=== PATIENT | female | born 1945 | race Caucasian/White ===

== ENCOUNTER → 2020-07-10 10:24 | Outpatient (CLI) | payer OTHER, SELFPAY ==
--- NOTE | ~2020-07-10 | MM_ITS ---
EXAMINATION: MM screening ana paula BI w jenny HISTORY: Screening TECHNIQUE: Craniocaudal and mediolateral oblique 3-D tomosynthesis images were obtained and synthetic 2-D images were generated. CAD analysis was submitted and interpreted. COMPARISON: Comparison to multiple prior studies sequentially, with oldest reviewed study dated 09/26. BREAST PARENCHYMAL COMPOSITION: There are scattered areas of fibroglandular density. FINDINGS: There is no evidence of suspicious mass, calcification, or architectural distortion to sugg est malignancy in either breast. There has been no suspicious interval change. IMPRESSION: 1. No mammographic evidence of malignancy. 2. Recommend routine screening mammography in one year. BI-RADS Category 1: Negative Reviewed, dictated and finalized at location A.
== END ==
PROVIDERS: PCP Internal Medicine; Visit Provider Nurse Practitioner
DX: Z12.31 Encounter for screening mammogram for malignant neoplasm of breast (principal)
CPT/HCPCS: 77063; 77067

== ENCOUNTER 2020-09-27 08:46 | Outpatient (CLI) | payer OTHER, SELFPAY ==
--- NOTE | ~2020-09-27 | DEXA_ITS ---
Bone Density Report Name: Belinda Ibarra Age: 74 Sex: Female Ethnicity: White Date of : 1945 Indication: osteopenia; parental hip fracture; height loss; prior fracture; postmenopausal Referring Provider: Denise Richards Study: Bone densitometry was performed. Exam Date: September 27, 2020 Accession number: [id number] Bone Density: Region BMD T-score Z-score Classification AP Spine (L1, L4) 0.919 -1.1 1.3 Osteopenia Femoral Neck (Left) 0.558 -2.6 -0.6 Osteoporosis Total Hip (Left) 0.746 -1.6 0.1 Osteopenia Total Hip Bilateral Avg 0.727 -1.8 -0.1 Osteopenia Femoral Neck (Right) 0.520 -3.0 -0.9 Osteoporosis Total Hip (Right) 0.707 -1.9 -0.2 Osteopenia World Health Organization criteria for BMD impression classify patients as: Normal (T-score at or above -1.0), Osteopenia (T-score between -1.0 and -2.5), or Osteoporosis (T-score at or below -2.5). 10-year Fracture Risk: FRAX not reported because: Some T-score for Spine Total or Hip Total or Femoral Neck at or below -2.5 Previous Exams: Region Exam Age BMD T-score BMD Change BMD Change Date g/cm2 vs Baseline vs Previous AP Spine(L1, L4) 09/27/2020 74 0.919 -1.1 -0.026(-2.7%)# -0.023(-2.4%) 09/15/2018 72 0.942 -0.9 -0.003(-0.3%)# 0.026(2.9%)* 07/15/2016 70 0.916 -1.1 -0.029(-3.1%)# -0.113(-11.0%) 12/22/2013 68 1.028 -0.1 0.083(8.8%)# -0.051(-4.7%)# 12/03/2010 65 1.079 0.4 0.134(14.2%)* 0.095(9.7%)* 08/26/2007 61 0.984 -0.5 0.039(4.1%)* 0.039(4.1%)* 02/06/2005 59 0.945 -0.8 Total Hip(Left) 09/27/2020 74 0.746 -1.6 -0.028(-3.6%)# 0.001(0.1%) 09/15/2018 72 0.746 -1.6 -0.029(-3.7%)# -0.017(-2.2%) 07/15/2016 70 0.763 -1.5 -0.012(-1.5%)# -0.037(-4.6%)* 12/22/2013 68 0.799 -1.2 0.025(3.2%)# 0.041(5.5%)# 12/03/2010 65 0.758 -1.5 -0.017(-2.1%) 0.004(0.5%) 08/26/2007 61 0.754 -1.5 -0.020(-2.6%) -0.020(-2.6%) 02/06/2005 59 0.774 -1.4 Total Hip(Right) 09/27/2020 74 0.707 -1.9 -0.060(-7.9%)# -0.022(-3.1%) 09/15/2018 72 0.729 -1.7 -0.038(-4.9%)# 0.010(1.3%) 07/15/2016 70 0.719 -1.8 -0.048(-6.2%)# -0.051(-6.6%)* 12/22/2013 68 0.770 -1.4 0.003(0.4%)# 0.020(2.7%)# 12/03/2010 65 0.750 -1.6 -0.017(-2.2%) 0.000(0.0%) 08/26/2007 61 0.751 -1.6 -0.016(-2.1%) -0.016(-2.1%) 02/06/2005 59 0.767 -1.4 *Denotes significance at 95% confidence level, LSC for AP Spine = 0.022 g/cm2, LSC for Total Hip = 0.027 g/cm2 Clinical Information Provided by Patient:
== END 2020-09-27 08:47 | disposition home or self-care (01) ==
PROVIDERS: PCP Internal Medicine; Visit Provider Nurse Practitioner
DX: M81.0 Age-related osteoporosis without current pathological fracture (principal); M85.89 Other specified disorders of bone density and structure, multiple sites
CPT/HCPCS: 77080

== ENCOUNTER → 2022-03-03 10:40 | Outpatient (CLI) | payer OTHER, SELFPAY ==
--- NOTE | ~2022-03-03 | MM_ITS ---
EXAMINATION: MM screening ana paula BI w jenny HISTORY: Screening mammogram TECHNIQUE: Craniocaudal and mediolateral oblique 3-D tomosynthesis images were obtained and synthetic 2-D images were generated. Bilateral rotated lateral CC views. CAD analysis was submitted and interp reted. COMPARISON: 07/10/2020, 12/16/2018, 12/01/2017 bilateral screening mammogram examinations BREAST PARENCHYMAL COMPOSITION: The breasts are heterogeneously dense, which may obscure small masses . FINDINGS: There is no evidence of suspicious mass, calcification, or architectural distortion to sugg est malignancy in either breast. There has been no suspicious interval change. IMPRESSION: 1. No mammographic evidence of malignancy. 2. Recommend routine screening mammography in one year. BI-RADS Category 1: Negative Reviewed, dictated and finalized at location A. MAN
== END ==
PROVIDERS: PCP Internal Medicine; Visit Provider Obstetrics & Gynecology Gynecology
DX: Z12.31 Encounter for screening mammogram for malignant neoplasm of breast (principal)
CPT/HCPCS: 77063; 77067

== ENCOUNTER 2022-11-29 09:32 | Outpatient (CLI) | payer OTHER, SELFPAY ==
--- NOTE | ~2022-11-29 | DEXA_ITS ---
Bone Density Report Name: WALESKA CARDOZO Age: 77 Sex: Female Ethnicity: White Date of : 1945 Indication: osteopenia; height loss; prior fracture; postmenopausal Referring Provider: CARON LOMAX Study: Bone densitometry was performed. Exam Date: November 29, 2022 Accession number: [id number] Bone Density: Region BMD T-score Z-score Classification AP Spine(L1, L2, L4) 0.990 -0.4 2.0 Normal Femoral Neck (Left) 0.532 -2.9 -0.7 Osteoporosis Total Hip (Left) 0.751 -1.6 0.3 Osteopenia Femoral Neck (Right) 0.541 -2.8 -0.6 Osteoporosis Total Hip (Right) 0.732 -1.7 0.1 Osteopenia Total Hip Mean 0.742 -1.7 0.2 Osteopenia World Health Organization criteria for BMD impression classify patients as: Normal (T-score at or above -1.0), Osteopenia (T-score between -1.0 and -2.5), or Osteoporosis (T-score at or below -2.5). 10-year Fracture Risk: FRAX not reported because: Some T-score for Spine Total or Hip Total or Femoral Neck at or below -2.5 Previous Exams: Region Exam Age BMD T-score BMD Change BMD Change Date g/cm2 vs Baseline vs Previous AP Spine (L1-L2,L4) 11/29/2022 77 0.990 -0.4 -0.055 (-5.2%) 0.038 (4.0%)* 07/15/2016 70 0.952 -0.7 -0.093 (-8.9%) -0.093 (-8.9%) 12/22/2013 68 1.045 0.1 Total Hip(Left) 11/29/2022 77 0.751 -1.6 -0.049 (-6.1%) 0.005 (0.6%) 09/27/2020 74 0.746 -1.6 -0.053 (-6.6%) 0.001 (0.1%) 09/15/2018 72 0.746 -1.6 -0.054 (-6.7%) -0.017 (-2.2%) 07/15/2016 70 0.763 -1.5 -0.037 (-4.6%) -0.037 (-4.6%) 12/22/2013 68 0.799 -1.2 Total Hip(Right) 11/29/2022 77 0.732 -1.7 -0.038 (-5.0%) 0.026 (3.6%) 09/27/2020 74 0.707 -1.9 -0.064 (-8.3%) -0.022 (-3.1%) 09/15/2018 72 0.729 -1.7 -0.041 (-5.4%) 0.010 (1.3%) 07/15/2016 70 0.719 -1.8 -0.051 (-6.6%) -0.051 (-6.6%) 12/22/2013 68 0.770 -1.4 *Denotes significance at 95% confidence level, LSC for AP Spine = 0.022 g/cm2, LSC for Total Hip = 0.027 g/cm2 Clinical Information Provided by Patient: Has had a low trauma fracture Has used the following medications: Vitamin D, Calcium Patient maximum height was 65 Menopause Age: 51 Drinks caffeinated beverages Onset of menses at age 13 Number of children 2 Impression: The patient has established osteoporosis, based on the Left Femoral Neck T-score and the existence of a prior fracture. The patient has risk factors, including: previous fracture. No signifi
== END 2022-11-29 09:33 | disposition home or self-care (01) ==
LOC: ANHIMG 09:34
PROVIDERS: PCP Nurse Practitioner Family; Visit Provider Nurse Practitioner Family
DX: M81.0 Age-related osteoporosis without current pathological fracture (principal); M85.852 Other specified disorders of bone density and structure, left thigh; M85.851 Other specified disorders of bone density and structure, right thigh
CPT/HCPCS: 77080

== ENCOUNTER → 2023-05-04 12:17 | Outpatient (CLI) | payer OTHER, SELFPAY ==
--- NOTE | ~2023-05-04 | MM_ITS ---
EXAMINATION: MM screening ana paula BI w jenny HISTORY: Screening TECHNIQUE: Craniocaudal and mediolateral oblique 3-D tomosynthesis images were obtained and synthetic 2-D images were generated. CAD analysis was submitted and interpreted. COMPARISON: Comparison to multiple prior studies sequentially, with oldest reviewed study dated 04/2016. BREAST PARENCHYMAL COMPOSITION: Not dense: There are scattered areas of fibroglandular density. FINDINGS: There is no evidence of suspicious mass, calcification, or architectural distortion to sugg est malignancy in either breast. There has been no suspicious interval change. IMPRESSION: 1. No mammographic evidence of malignancy. 2. Recommend routine screening mammography in one year. BI-RADS Category 1: Negative Reviewed, dictated and finalized at location A. L MANAGER
== END ==
PROVIDERS: PCP Nurse Practitioner; Visit Provider Nurse Practitioner
DX: Z12.31 Encounter for screening mammogram for malignant neoplasm of breast (principal)
CPT/HCPCS: 77063; 77067

== ENCOUNTER 2023-09-08 09:58 | Emergency (ER) | payer OTHER, SELFPAY ==
[2023-09-08 10:15] VITALS: BP 134/61; PULSE 105; RESP 14; TEMP 37.1; O2SAT 99
[2023-09-08 10:36] LABS: EDUAAPPEAR Cloudy; EDUABILI 1+; EDUABLOOD 3+; EDUACOLOR1 Yellow; EDUAGLUCOSE Negative; EDUAKETONE Negative; EDUALEUKO 3+; EDUANITRATE Negative; EDUAPH 5.5; EDUAPROTEIN 3+; EDUAUROBILI 0.2
--- NOTE | 2023-09-08 10:40 | ED.FEMALEGU ---
HPI - Female Genitourinary General Chief complaint: Urogenital-Female Stated complaint: urinary issue Time Seen by Provider: 09/08/23 10:40 Source: patient Mode of arrival: ambulatory Limitations: no limitations History of Present Illness HPI Narrative: 77-year-old female presents with complaint of urinary urgency, frequency, pressure to suprapubic area for 3 days. Afebrile. Denies dysuria. All systems reviewed and negative except as noted above. Related Data Home Medications Medication Instructions Recorded Confirmed calcium carbonate 600 mg PO BID 10/01/20 08/08/23 cholecalciferol (vitamin D3) 25 12.5 mcg PO BID 01/12/23 08/08/23 mcg (1,000 unit) chewable tablet latanoprost 0.005 % eye drops drp LEFT EYE 08/08/23 08/08/23 Allergies Allergy/AdvReac Type Severity Reaction Status Date / Time ibuprofen Allergy Severe THROAT Verified 09/08/23 10:22 SWELLING alendronate sodium Allergy Intermediate CCRAMPING Verified 09/08/23 10:22 AND DIARRHEA fluconazole Allergy Intermediate RASH Verified 09/08/23 10:22 amoxicillin Allergy Unknown Diarrhea Verified 09/08/23 10:22 bee stings Allergy Intermediate SWELLING Uncoded 09/08/23 10:22 OF FACE CAPIX SHAMPOO Allergy Intermediate ITCHING Uncoded 09/08/23 10:22 AND BURNING Review of Systems Review of Systems: CONSTITUTIONAL: Denies fever, chills, or sweats. EYES: Denies visual changes, redness, or discharge. ENT: Denies rhinorrhea, congestion, sore throat, or otalgia. CARDIOVASCULAR: Denies chest pain, palpitations, or edema. RESPIRATORY: Denies cough or dyspnea. GASTROINTESTINAL: Denies abdominal pain, nausea, vomiting, or diarrhea. GENITOURINARY: Denies dysuria or hematuria. Reports urinary frequency, urgency, Suprapubic pressure. SKIN: Denies rash or itching. MUSCULOSKELETAL: Denies back pain, joint pain, or myalgia. NEUROLOGIC: Denies headache, numbness, or weakness. PSYCHIATRIC: Denies anxiety or depression. All other systems reviewed are negative, except as documented in HPI. 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, left eye Cough Fasting hyperglycemia Hemoptysis Hyperlipidemia, unspecified Overweight Shortness of breath Unspecified asthma, uncomplicated Family History Family History Mother Family history of Alzheimer's disease Father Family history of lung cancer Patient's father is Sibling Family history of hyperthyroidism Other Hypertension Social History Social History Smoking status: Never smoker Alcohol intake: never Lack of Transportation: No Lack of Food: Never True Current Housing: I Have Housing Concerned About Future Housing: No Difficulty Paying Gas/Electric Bills: No Difficulty Paying for Meds: No Currently Unemployed: No Education: High School Diploma/GED Difficulty w/ Childcare or Family Care: No Comments At time of signature, agree with nursing past medical, surgical, social and family history. There is no relevant family history pertinent to the presenting complaint. Exam Narrative: GENERAL: This is a well-nourished, well-developed patient, in no apparent distress. HEAD: normocephalic, atraumatic. EYES: PERRL. Sclera clear/white. Vision is grossly intact. EARS: External ears normal NOSE: External nose normal NECK: Neck supple, non-tender without lymphadenopathy, masses or thyromegaly. CARDIOVASCULAR: Regular rate and rhythm without murmurs, gallops, or rubs. RESPIRATORY: Clear to auscultation. Breath sounds equal bilaterally. No wheezes, rales, or rhonchi. SKIN: warm, Dry, intact with no suspicious lesions or rash, good texture and turgor. NEURO: awake
== END 2023-09-08 10:53 | disposition home or self-care (01) ==
PROVIDERS: Emergency Provider Nurse Practitioner Family; PCP Nurse Practitioner Family
DX: N39.0 Urinary tract infection, site not specified (principal); B96.20 Unspecified Escherichia coli [E. coli] as the cause of diseases classified elsewhere; E78.5 Hyperlipidemia, unspecified; J45.909 Unspecified asthma, uncomplicated
CPT/HCPCS: 81003; 87077; 87086; 87088; 87186; 99213; G0463

== ENCOUNTER 2023-11-20 16:11 | Emergency (ER) | payer OTHER, SELFPAY ==
--- NOTE | ~2023-11-20 | CT_ITS ---
CT brain wo con Ordering provider: Alley Avendaño PA-C History: 78 years Female with . head injury . Comparison: December 26, 2005 Technique: CT of the head without contrast. Radiation reduction technique utilized.The dose-length product was 529.67 mGy-cm. FINDINGS: BRAIN PARENCHYMA AND CSF SPACES: Mild leukoaraiosis and diffuse cortical atrophy. Mild atheromatous d isease. No midline shift, mass effect or hemorrhage. The brain parenchyma and CSF spaces are otherwi se normal. VISUALIZED PARANASAL SINUSES: Bilateral ethmoid and maxillary sinus disease. Bilateral sphenoid sinus disease. MASTOIDS: Well aerated. BONES: The bones appear intact. SOFT TISSUES: Visualized nasopharynx is normal. Superficial soft tissues are normal. IMPRESSION: No acute intracranial findings. Reviewed, dictated and finalized at location A.
--- NOTE | ~2023-11-20 | CT_ITS ---
CT facial & cervical spine wo Ordering provider: Alley Avendaño PA-C History: . head injury . Comparison: None. Technique: Thin slice axial CT of the facial bones was performed without contrast. Coronal and sagit hollie reformatted images were also obtained. . Automated exposure control and iterative reconstruction technique were employed. The dose-length product was 118.64 mGy-cm. FINDINGS: PARANASAL SINUSES: Bilateral maxillary, ethmoid and sphenoid sinus disease. Left frontal sinus diseas e. Obliteration of the ostiomeatal complexes. BONES: No facial fracture including no nasal bone fracture. ORBITS AND SUPERFICIAL SOFT TISSUES: The optic globes and orbits are normal. The superficial soft tis sues are normal. VISUALIZED MASTOIDS: Well aerated. LIMITED VISUALIZED BRAIN PARENCHYMA: Normal. IMPRESSION: No facial fracture. Pansinusitis. CT facial & cervical spine wo Ordering provider: Alley Avendaño PA-C History: . head injury . Comparison: None. Technique: CT of the cervical spine was performed without contrast. Sagittal and coronal reformatted images were also obtained and reviewed. Automated exposure control and iterative reconstruction prachi hnique were employed. The dose-length product was 118.64 mGy-cm. FINDINGS: VERTEBRAE: No subluxation or acute fracture. The occipital condyles are intact. DISC SPACES: Narrowing of the disc C3-C4, C4-C5, C5-C6 and C6-C7. Multilevel facet joint disease. Mul tilevel uncovertebral joint osteoarthritic changes. PARASPINOUS SOFT TISSUES: Left thyroid nodule measuring 1.2 cm. Ultrasound evaluation advised. IMPRESSION: No acute osseous abnormality cervical spine. Reviewed, dictated and finalized at location A. IMPRESSION: No facial fracture. Pansinusitis. CT facial & cervical spine wo Ordering provider: Alley Avendaño PA-C History: . head injury . Comparison: None. Technique: CT of the cervical spine was performed without contrast. Sagittal a nd coronal reformatted images were also obtained and reviewed. Automated expos ure control and iterative reconstruction technique were employed. The dose-amy th product was 118.64 mGy-cm. FINDINGS: VERTEBRAE: No subluxation or acute fracture. The occipital condyles are intact. DISC SPACES: Narrowing of the disc C3-C4, C4-C5, C5-C6 and C6-C7. Multilevel fa cet joint disease. Multilevel uncovertebral joint osteoarthritic changes. PARASPINOUS SOFT TISSUES: Left thyroid nodule measuring 1.2 cm. Ultrasound eval uation advised.
--- NOTE | ~2023-11-20 | XR_ITS ---
XR elbow RT min 3V Ordering provider: Alley Avendaño PA-C History: . injury/glf . Comparison: None. FINDINGS: BONES: Comminuted fracture of the olecranon process of the ulna is noted with displacement of the bon e superiorly and with a large between the bony fragments. JOINT SPACES: Normal. SOFT TISSUES: Soft tissue swelling is seen over the elbow posteriorly. IMPRESSION: Comminuted fracture of the olecranon process of the ulna. Displacement in the bony fragments is seen. Reviewed, dictated and finalized at location A. IMPRESSION: Comminuted fracture of the olecranon process of the ulna. Displacement in the b dae fragments is seen.
--- NOTE | ~2023-11-20 | XR_ITS ---
XR knee RT min 4V Ordering provider: Alley Avendaño PA-C History: . fall, pain . Comparison: None. FINDINGS: BONES: No acute fracture or dislocation. JOINT SPACES: Normal. 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 IMPRESSION: No acute osseous abnormality right knee. Reviewed, dictated and finalized at location A.
--- NOTE | ~2023-11-20 | XR_ITS ---
XR knee LT min 4V Ordering provider: Alley Avendaño PA-C History: . fall, pain . Comparison: None. FINDINGS: BONES: No acute fracture or dislocation. JOINT SPACES: Normal. Marginal slice in the patella. Osteophytes in the tibial spines. SOFT TISSUES: Normal. IMPRESSION: No acute osseous abnormality left knee. Reviewed, dictated and finalized at location A.
[2023-11-20 16:21] VITALS: BP 126/58; PULSE 84; RESP 17; TEMP 36.4; O2SAT 100
--- NOTE | 2023-11-20 17:34 | ED.FALL ---
HPI - Fall General Chief Complaint: Extremity Injury, Upper Stated Complaint: right elbow, knees, and head injury Time Seen by Provider: 11/20/23 16:36 Source: patient Mode of arrival: ambulatory Limitations: no limitations History of Present Illness HPI Narrative: This is a 78 year old female that presents to the ER for right elbow pain. Reports she tripped and fell in her garage and landed on her elbows, then knees then hit her head. She did not lose consciousness. Reports right elbow pain and swelling. She did not lose consciousness. Reports contusions to the bilateral knees as well as contusion to her nose and forehead. Denies vision changes, vomiting, or numbness. Related Data Home Medications Medication Instructions Recorded Confirmed calcium carbonate 600 mg PO BID 10/01/20 08/08/23 cholecalciferol (vitamin D3) 25 12.5 mcg PO BID 01/12/23 08/08/23 mcg (1,000 unit) chewable tablet latanoprost 0.005 % eye drops drp LEFT EYE 08/08/23 08/08/23 Allergies Allergy/AdvReac Type Severity Reaction Status Date / Time ibuprofen Allergy Severe THROAT Verified 11/20/23 16:17 SWELLING alendronate sodium Allergy Intermediate CCRAMPING Verified 11/20/23 16:17 AND DIARRHEA fluconazole Allergy Intermediate RASH Verified 11/20/23 16:17 amoxicillin Allergy Unknown Diarrhea Verified 11/20/23 16:17 bee stings Allergy Intermediate SWELLING Uncoded 11/20/23 16:17 OF FACE CAPIX SHAMPOO Allergy Intermediate ITCHING Uncoded 11/20/23 16:17 AND BURNING Review of Systems Review of Systems: CONSTITUTIONAL: Denies fever EYES: Denies visual changes GASTROINTESTINAL: Denies vomiting MUSCULOSKELETAL: Reports joint pain, and myalgia. NEUROLOGIC: Denies numbness, or weakness. 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, left eye Cough Fasting hyperglycemia Hemoptysis Hyperlipidemia, unspecified Overweight Shortness of breath Unspecified asthma, uncomplicated Family History Family History Mother Family history of Alzheimer's disease Father Family history of lung cancer Patient's father is Sibling Family history of hyperthyroidism Other Hypertension Social History Social History (Reviewed 01/12/23 @ 08:20 by Olga Mendoza [facility]) Smoking status: Never smoker Alcohol intake: never Lack of Transportation: No Lack of Food: Never True Current Housing: I Have Housing Concerned About Future Housing: No Difficulty Paying Gas/Electric Bills: No Difficulty Paying for Meds: No Currently Unemployed: No Education: High School Diploma/GED Difficulty w/ Childcare or Family Care: No Exam Narrative: GENERAL: Elderly, well-nourished, and in no acute distress. HEAD: Normocephalic. Contusion to the right forehead EYES: PERRLA and EOMI. ENT: Nares clear, no rhinorrhea or epistaxis. Mucous membranes moist. Oropharynx without tonsillar hypertrophy exudate or other lesions. Bilateral TMs pearly bobby non-bulging NECK: Supple. No adenopathy or masses. CHEST: Clear to auscultation. No respiratory distress. No wheezes rales or rhonchi HEART: Regular rate and rhythm. No murmur heard. Normal peripheral pulses. BACK: No midline spinal tenderness EXTREMITIES: Edema and bruising to the right elbow. Normal DP pulse. Normal sensation. 2.5cm linear laceration/skin tear that is superficial to the right elbow laterally SKIN: Warm, dry, no rash. NEURO: No focal deficits. Alert and oriented x3. PSYCH: Normal mood and affect Course Course Emergency Course: Patient updated on workup and agrees with plan of care Consultations Consultation #1: Spoke with Dr. Delaney about patient
[2023-11-20] MEDS: TETANUS,DIPHTHERIA,AC PERTUSSIS ADULT (0.5 ML) BOOSTRIX IM (17:42)
[2023-11-20 17:46] VITALS: BP 130/73; PULSE 88; RESP 19; O2SAT 100
[2023-11-20] MEDS: HYDROcodone/acetaminophen (*CRX) 5-325 MG TABLET 1 TAB PO (19:23)
[2023-11-20 19:30] VITALS: BP 130/60; PULSE 98; RESP 16; TEMP 36.8; O2SAT 96
== END 2023-11-20 20:43 | disposition home or self-care (01) ==
PROVIDERS: Emergency Provider Physician Assistant; PCP Nurse Practitioner Family
DX: S42.401A Unspecified fracture of lower end of right humerus, initial encounter for closed fracture (principal); D64.9 Anemia, unspecified; E78.5 Hyperlipidemia, unspecified; W01.0XXA Fall on same level from slipping, tripping and stumbling without subsequent striking against object, initial encounter; Z23 Encounter for immunization
CPT/HCPCS: 12001; 29105; 70450; 70486; 72125; 73080; 73564; 90471; 90715; 99284; A4565; A9270

== ENCOUNTER 2023-11-22 11:12 | Outpatient (CLI) | payer OTHER, SELFPAY ==
--- NOTE | 2023-11-22 11:40 | ECG_ITS ---
Test Date: 2023-11-22 11:52:47 Measurements Intervals [place] Rate: 90 P: 76 [place]: 134 QRS: 25 QRSD: 85 T: 48 QT: 320 QTc: 392 Interpretive Statements SINUS RHYTHM BORDERLINE R WAVE PROGRESSION, ANTERIOR LEADS BASELINE ARTIFACT- I, II, III, AVR, AVL, AVF, V1-V6 BORDERLINE ECG No previous ECG available for comparison Electronically Signed On 11-22-2023 12:58:29 CDT by Gabe Mcelroy D.O.
[2023-11-22 12:22] LABS: Anion Gap 13 mmol/L (4-12); Blood Urea Nitrogen 17 mg/dL (7-17); Calcium 9.3 mg/dL (8.4-10.2); Carbon Dioxide 25 mmol/L (22-30); Chloride 95 mmol/L (98-107); Estimated Glomerular Filt Rate > 60; Glucose 117 mg/dL (65-110); Potassium 3.6 mmol/L (3.4-5.0); Sodium 133 mmol/L (137-145)
== END 2023-11-22 11:13 | disposition home or self-care (01) ==
LOC: ANHSURGERY 11:19
PROVIDERS: Anesthesiology; PCP Nurse Practitioner Family; Visit Provider Orthopaedic Surgery
DX: I10 Essential (primary) hypertension (principal); Z79.899 Other long term (current) drug therapy; Z01.818 Encounter for other preprocedural examination
CPT/HCPCS: 36415; 80048; 93005

== ENCOUNTER 2023-11-25 04:18 | Day surgery (SDC) | payer OTHER, SELFPAY ==
[2023-11-22 08:24] VITALS: BMI 21.4
--- NOTE | 2023-11-22 08:31 | PC.NURSE ---
Report to the Outpatient Waiting Room, entrance under the green pavilion located off [facility], at time _1030_ on date _[id number]_. Planned Procedure Time: _1230_.? Time changes happen often and if your time is changed the preop area will call you the afternoon before. - You and your visitor will be asked to self-screen and do not enter if you have any COVID symptoms. Please call surgeon if you need to reschedule. - A mask is optional within the hospital at this time. Patients may have clear liquids (water, carbonated beverages, clear teas, apple juice) until 3 hours prior to surgery with a maximum of 20 ounces. - No food from midnight until time of surgery and no smoking Take only the following medications with a SIP of water on the morning of surgery: __eye drops, Flonase nasal spray if needed and Pain pill if needed.__ DO NOT STOP ANY OF YOUR OTHER PRESCRIPTION MEDICATIONS PRIOR TO SURGERY EXCEPT THE FOLLOWING Medications to discontinue per physician ___Vitamins Date to take last dose___Stop now. Please no make-up, nail danish, hairspray, perfume, deodorant, or body powder the day of surgery.? No jewelry (including any body piercings) or valuables the day of surgery, leave them at home.? Please take a shower or bath the night before, or the morning of, surgery with an antibacterial soap.? Wear comfortable, loose fitting clothing.? - Jewelry must be removed prior to entering the operating room.? Rings and piercings that are not removed may be cut off. - The hospital will not accept responsibility for valuables.? - Please leave all valuables, including medications, at home the day of surgery. If you are going home after surgery, a licensed truck driver helper must drive you home.? - NO public transportation without another adult if you receive anesthesia. - We recommend that an adult stay with you for 24 hours following discharge. - We also recommend that you do not drive, make important decision, drink alcoholic beverages, or take any drugs that were not prescribed by your health care provider for at least 24 hours after your discharge time. Follow any additional instructions given to you from your surgeon. Telephone instructions given to __Belinda__and asked if any additional questions and then verbalized understanding. Patient advised to call surgeon office or pre surgery nurse liaison [phone] if any additional questions.
[2023-11-25] VITALS (10 sets, daily range): BP systolic 113–122; BP diastolic 51–65; PULSE 76–97; RESP 14–20; TEMP 36.7–36.8; O2SAT 95–100; BMI 20.8
--- NOTE | ~2023-11-25 | XR_ITS ---
EXAMINATION: XR surgery orthopedic DATE: 11/25/2023 14:52 INDICATION: ORIF right olecranon fracture TECHNIQUE: 9 fluoroscopic images of the right elbow were obtained during procedure performed by Dr. Lori miles. Radiologist was not present for the imaging or procedure. The amount of fluoroscopy time used during this procedure was 1.2 minutes. Total DAP was 0.0485 mGycm^2. COMPARISON: 11/20/2023 FINDINGS: Interval open reduction with transient percutaneous pins and subsequent internal fixation of the prev iously seen comminuted intra-articular fracture of the right olecranon. The fracture is fixed with a dorsal plate and screws. Alignment post fixation appears near-anatomic. No new fractures identified. Joint spaces appear relatively preserved with some expected postoperative intra-articular gas on the final images. IMPRESSION: 1. Near-anatomic alignment post open reduction internal fixation of a comminuted intra-articular frac ture of the right olecranon. Reviewed, dictated and finalized at location B. IMPRESSION: 1. Near-anatomic alignment post open reduction internal fixation of a comminute d intra-articular fracture of the right olecranon.
--- NOTE | 2023-11-25 10:13 | PM.IMHP ---
H&P: HPI History of Present Illness Date/Time: 11/25/23 10:13 Chief Complaint: Right olecranon fracture Narrative: 78-year-old female who presents today for ORIF of right olecranon fracture. She fell at home on 11/19. She fell on the concrete floor in the garage. She lost her balance. She had immediate pain in the right elbow and was seen in the ER on that day. She has a markedly comminuted and displaced right olecranon fracture. She was seen in the office on 11/20. Dr. Delaney review the x-rays. He did recommend ORIF of the elbow given the significant comminution and the displacement of the fracture. After discussing this with the patient she felt she would like to proceed with surgery and presents today for that. 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, left eye Cough Fasting hyperglycemia Hemoptysis Hyperlipidemia, unspecified Overweight Shortness of breath Unspecified asthma, uncomplicated Surgical History Surgical History (Updated 11/21/23 @ 13:47 by Laurel Roberts CMA) History of surgery on right wrist Family History Family History Mother Family history of Alzheimer's disease Father Family history of lung cancer Patient's father is Sibling Family history of hyperthyroidism Other Hypertension Social History Social History (Updated 11/21/23 @ 13:47 by Laurel Roberts CMA) Smoking status: Never smoker Alcohol intake: never Substance use type: does not use Do You Feel Safe in your Home?: Yes Lack of Transportation: No Lack of Food: Never True Current Housing: I Have Housing Concerned About Future Housing: No Difficulty Paying Gas/Electric Bills: No Difficulty Paying for Meds: No Currently Unemployed: No Education: High School Diploma/GED Difficulty w/ Childcare or Family Care: No Living arrangements: with family Spiritual care concerns: No Meds Home Medications and Allergies Home Medications Medication Instructions Recorded Confirmed Type calcium carbonate 600 mg PO BID 10/01/20 11/22/23 History bimatoprost 0.01 % eye drops 1 drp EACH EYE QPM #2.5 mL 07/08/22 11/22/23 Rx (Zhang) cholecalciferol (vitamin D3) 25 12.5 mcg PO BID 01/12/23 11/22/23 History mcg (1,000 unit) chewable tablet fluocinonide 0.05 % topical 1 applic topical BID #60 mL 01/12/23 11/22/23 Rx solution atorvastatin 10 mg tablet See Rx Instructions .Route 08/08/23 11/22/23 Rx .COMPLEX #90 tabs latanoprost 0.005 % eye drops 1 drp EACH EYE HS 08/08/23 11/22/23 History lisinopril 20 See Rx Instructions .Route 08/08/23 11/22/23 Rx mg-hydrochlorothiazide 12.5 mg .COMPLEX #180 tabs tablet potassium chloride 10 mEq See Rx Instructions .Route 08/08/23 11/22/23 Rx capsule,extended release .COMPLEX #180 caps selenium sulfide 2.5 % lotion See Rx Instructions .Route 09/19/23 11/22/23 Rx .COMPLEX #120 mL montelukast 10 mg tablet See Rx Instructions .Route 09/21/23 11/22/23 Rx .COMPLEX #90 tabs hydrocodone 5 mg-acetaminophen 325 1 tablet PO Q8H PRN pain #20 tabs 11/20/23 11/22/23 Rx mg tablet dorzolamide 2 % eye drops 1 drp EACH EYE BID 11/22/23 11/22/23 History fluticasone propionate 50 2 spray intranasal DAILY PRN 11/22/23 11/22/23 History mcg/actuation nasal Allergy Symptoms spray,suspension (Flonase Allergy Relief) Allergies Allergy/AdvReac Type Severity Reaction Status Date / Time ibuprofen Allergy Severe THROAT Verified 11/22/23 08:20 SWELLING alendronate sodium Allergy Intermediate CCRAMPING Verified 11/22/23 08:20 AND DIARRHEA fluconazole Allergy Inter
[2023-11-25] MEDS: LACTATED RINGERS 1,000 ML 30 ML IV CONT ×2 (11:20→15:16)
[2023-11-25] MEDS: VANCOMYCIN 750 MG/NS 250 ML BAG 250 MG IVPB (11:25)
[2023-11-25] MEDS: ACETAMINOPHEN 500 MG TABLET 1000 MG PO (11:28)
--- NOTE | 2023-11-25 12:28 | WPDHPUPDATE1 ---
History and Physical Update Update Date/Time: 11/25/23 12:28 History and Physical has been reviewed, including an updated exam of the patient. There are NO changes in the patient's condition. Risks, benefits, and alternatives have been discussed and questions answered. Patient agrees to proceed with procedure.
--- NOTE | 2023-11-25 12:50 | WPDANESEPPF ---
Anes - Initial Pre Proc Eval Procedure: Operation Date: 11/25/23 12:30 Proposed Procedures p Open Reduction Internal Fixation Right Olecranon Fracture - Devan Delaney MD Date/Time: 11/25/23 12:50 Surgeon: Devan Delaney MD Pre Op Diagnosis: right olecranon fx Patient Data Age: 78 Gender: F Height: 1.6 m Weight: 53.3 kg Last Vital Signs Temp 98.1 F 11/25/23 11:00 Pulse 97 11/25/23 11:00 Resp 16 11/25/23 11:00 BP 117/59 L 11/25/23 11:00 Pulse Ox 98 11/25/23 11:00 O2 Del Method Room Air 11/25/23 11:00 Allergies Allergy/AdvReac Type Severity Reaction Status Date / Time ibuprofen Allergy Severe THROAT Verified 11/22/23 08:20 SWELLING NSAIDS (Non-Steroidal Allergy Severe Swelling Verified 11/25/23 11:37 Anti-Inflamma alendronate sodium Allergy Intermediate CCRAMPING Verified 11/22/23 08:20 AND DIARRHEA fluconazole Allergy Intermediate RASH Verified 11/22/23 08:20 timolol Allergy Intermediate Dizziness Verified 11/25/23 11:37 amoxicillin Allergy Unknown Diarrhea Verified 11/22/23 08:20 bee stings Allergy Intermediate SWELLING Uncoded 11/22/23 08:20 OF FACE CAPIX SHAMPOO Allergy Intermediate ITCHING Uncoded 11/22/23 08:20 AND BURNING Home Medications Medication Instructions Recorded Confirmed Type calcium carbonate 600 mg PO BID 10/01/20 11/22/23 History bimatoprost 0.01 % eye drops 1 drp EACH EYE QPM #2.5 mL 07/08/22 11/22/23 Rx (Lumigan) cholecalciferol (vitamin D3) 25 12.5 mcg PO BID 01/12/23 11/22/23 History mcg (1,000 unit) chewable tablet fluocinonide 0.05 % topical 1 applic topical BID #60 mL 01/12/23 11/22/23 Rx solution atorvastatin 10 mg tablet See Rx Instructions .Route 08/08/23 11/22/23 Rx .COMPLEX #90 tabs latanoprost 0.005 % eye drops 1 drp EACH EYE HS 08/08/23 11/22/23 History lisinopril 20 See Rx Instructions .Route 08/08/23 11/22/23 Rx mg-hydrochlorothiazide 12.5 mg .COMPLEX #180 tabs tablet potassium chloride 10 mEq See Rx Instructions .Route 08/08/23 11/22/23 Rx capsule,extended release .COMPLEX #180 caps selenium sulfide 2.5 % lotion See Rx Instructions .Route 09/19/23 11/22/23 Rx .COMPLEX #120 mL montelukast 10 mg tablet See Rx Instructions .Route 09/21/23 11/22/23 Rx .COMPLEX #90 tabs hydrocodone 5 mg-acetaminophen 325 1 tablet PO Q8H PRN pain #20 tabs 11/20/23 11/25/23 Rx mg tablet dorzolamide 2 % eye drops 1 drp EACH EYE BID 11/22/23 11/22/23 History fluticasone propionate 50 2 spray intranasal DAILY PRN 11/22/23 11/22/23 History mcg/actuation nasal Allergy Symptoms spray,suspension (Flonase Allergy Relief) Patient hx anesthesia problems: none Family hx anesthesia problems: none Results Review: All pre-operative results and documents have been reviewed as part of the pre-operative evaluation. [facility] Past Medical History Medical History Allergy, unspecified, subsequent encounter Anemia Body mass index (BMI) 21.0-21.9, adult Changes in retinal vascular appearance, left eye Cough Fasting hyperglycemia Hemoptysis Hyperlipidemia, unspecified Overweight Shortness of breath Unspecified asthma, uncomplicated Surgical History Surgical History History of surgery on right wrist Family History Family History Mother Family history of Alzheimer's disease Father Family history of lung cancer Patient's father is Sibling Family history of hyperthyroidism Other Hypertension Social History Social History Smoking status: Never smoker Alcohol intake: never Substance use type: does not use Do You Feel Safe in your Home?: Yes Lack of Transportation: No Lack of Food: Never True Current Housing: I Have Housing Con
[2023-11-25] MEDS: ceFAZolin 2 GM/D5W 50 ML 2 GM/50 ML BAG IVPB (12:58)
[2023-11-25] MEDS: ceFAZolin SODIUM 1 GM VIAL IM (13:35)
--- NOTE | 2023-11-25 14:57 | W.PM.PROC2 ---
Procedure Note - Detailed Date of Procedure 11/25/23 Pre-op Diagnosis right olecranon fx. As there was very subtle anterior subluxation of the coronoid portion of the trochlear notch this would be considered a Montegg[place] variant Post-op Diagnosis Same Procedure Performed Open reduction internal fixation of right olecranon fracture. Surgeon Devan Delaney MD Machine Ironer Miguelina Anesthesia General Description of Procedure Patient was brought to the operating room and general anesthesia was administered. The splint was removed and the skin cleansed with the chlorhexidine cloth and we removed the 3 nylon sutures that were approximating the skin tear which was completely sealed and the right arm prepped and draped usual fashion all the skin covered with Ioban. She received 2 g of Ancef weight based vancomycin preoperatively. Tourniquet was elevated to 250 mmHg. A 6 in incision was made over the proximal ulna and olecranon on skirting lateral to the to the tip of the olecranon. Fracture was exposed and hematoma evacuated organized hematoma removed. We exposed the posterior surface of the ulnar shaft and its comminution just enough so we would be able to visualize reduction. A towel clip was applied to the olecranon fragment that was retracted proximally and we brought this into reduced position and introduced a 1.6 mm longitudinal K-wire to assist in stabilizing it. We then applied the 5 hole Accu Med olecranon plate for the right proximal ulna. We chose the 5 hole instead of the 3 hole because of the degree of comminution. The plate was compressed to the and left shaft and the posterior surface of the olecranon and all of and inserted. We then inserted a 1.6 mm K-wire in the home run however and assessed the reduction fluoroscopically which looked very good. There was correction of the subluxation with the radial head lining up perfectly with the capitellum and the congruous CT of the distal half the trochlear notch matching the curvature of the trochlea perfectly. Satisfied with the reduction we placed a cortical screw in the distal portion of the central oval hole and tightening this gave us additional interfragmentary compression. We then placed locking screws in the olecranon fragment. She was very small so only 3 screws were utilized. Once again we checked the alignment the fracture under for. We put the tourniquet down at this time. We then drilled for the home run screw which was placed. We did not violate the anterior distal cortex with that screw or drill bit. We then placed a standard cortical screw in the more distal oval hole and a locking screw in the shaft in between these. We drilled the locking hole that was just distal to the fracture which was actually a few mm distal to the fracture some used the unicortical screw there is well for additional fixation. This gave us 7 cortices of fixation distal to the fracture. We left the most distal hole open. Final fluoroscopic x-rays were obtained. Alignment the fracture absence of any subluxation at the ulnohumeral articulation and screw position confirmed. Tourniquet was let down at 38 minutes after we had completed the initial portion of the fixation. Before applying the plate we passed 1.4 mm RetailNext suture tapes through the 2 small holes at the proximal end of the plate and at this point we ran each stitch up and down in a [place] fashion the lateral suture a non lateral 1/2 of the triceps tendon and the medial suture of a down the medial half the triceps tendon is. He took out all the slack and tied each of these down tightly neutralizing the pole of the triceps on the olecranon fragment and we placed knots just off to the side the proximal end of the plate 1 medial 1 lateral. The wound was again irrigated with Ancef solution. Skin closed with 2 subcutaneous Vicryl and glue and anterior well-padded splint applied 60? of flexion and patient transferred postop recovery room in stable condition.
[2023-11-25] MEDS: fentaNYL CITRATE INJ (*CRX) 100 MCG/2 ML VIAL 25 MCG IV PUSH ×4 (15:50→16:05)
[2023-11-25] MEDS: oxyCODONE HCL (*CRX) 5 MG TAB IR PO (16:50)
--- NOTE | 2023-11-25 17:21 | PM.OP ---
Procedure Note - Brief Procedure Note - Brief Date of procedure: 11/25/23 right olecranon fx Procedure performed: ORIF right olecranon fx Surgeon: RAFIQ Mares Findings: y/o who under went ORIF of her right olecranon fx on 11/24. I was involved in the procedure including positioning patient on the OR table and first assisting through the time of surgery. Total time spent was 2 and half hours
== END 2023-11-25 17:40 | disposition home or self-care (01) ==
PROVIDERS: PCP Nurse Practitioner Family; Visit Provider Orthopaedic Surgery
PROC: (CPT 24685; principal; 2023-11-25 12:30)
DX: S52.021A Displaced fracture of olecranon process without intraarticular extension of right ulna, initial encounter for closed fracture (principal); W18.30XA Fall on same level, unspecified, initial encounter; E78.5 Hyperlipidemia, unspecified; J45.909 Unspecified asthma, uncomplicated
CPT/HCPCS: 24685; 36415; 80048; 93005; 99199; A9270; C1713; C1769; J0690; J2270; J2405; J2704; J3010; J3370; J7120

== ENCOUNTER 2024-01-13 11:00 | Outpatient (RCR) | payer OTHER, SELFPAY ==
--- NOTE | 2024-01-02 10:48 | OTOPEVAL1 ---
Assessment and note entered by ANDREA Barillas/Yanet, CHT Evaluation Information Assessment Status Evaluation Diagnosis S52.021A displaced fracture of olecranon process Subjective Information Patient sustained a right olecranon fracture after a fall. She is s/p ORIF 11/25/23. She is right handed and reports she is unable to use her right hand to feed herself, wash her hair, or reach her face for grooming. She is relying on her left hand. Reported Pain Level Pain Score 3: Self Report Assessment OT Clinical Summary Patient referred to OT following right olecranon fracture s/p ORIF. She presents with 20 deg. extension lag in the elbow and 110 degrees of elbow flexion, which is restricting her ability to complete self care tasks that involve reaching her face. Orders at this time are only for ROM, no strengthening. Skilled OT indicated to maximize functional ROM of the right elbow. Plan of Care Interventions Therapeutic Exercise,Manual Therapy,Hot Pack/Cold Pack OT Services Indicated Yes Treatment Frequency and 2x/week for 2 weeks Duration These treatments will address the objective and functional deficits as defined above. The patient will be advanced safely and appropriately in order for the patient to progress towards his/her prior level of function. Additional exercises will be introduced and as well as a comprehensive home exercise program upon discharge, if needed, ?to ensure carryover of functional gains achieved in the clinic. This treatment plan has been reviewed and agreement upon by the patient.
--- NOTE | 2024-01-02 10:48 | OPREHPOC ---
Outpatient Therapy Plan of Care This is a Multidisciplinary Plan of Care that may contain components documented by all disciplines (PT, OT, and ST.) OT Problem 1 OT Problem #1 Knowledge Deficit OT Goal 1 Goal / Goal Update 1. Patient to be independent with instructed materials. Target Visit 4 OT Problem 2 OT Problem #2 Impaired Range of Motion OT Goal 1 Goal / Goal Update Increase active ROM of the right elbow: 1. flexion from 110 to 130 2. extension from -20 to 0 Target Visit 4
--- NOTE | 2024-01-13 11:52 | OTOPDC ---
Assessment and note entered by Lino Woodruff, ANDREA/Yanet, CHT OT Discharge Summary 01/13/24 Assessment Status Discharge Diagnosis S52.021A displaced fracture of olecranon process Subjective Information Patient has been complaint with HEP. She reports she has been able to now reach her head/hair to wash her hair using the right hand. she is now able to use her right arm to help pull her pants up and she is donning and doffing her shirts more normally. She has been getting back to feeding herself with the right hand, not eating 100% of her meals with the right hand just yet. Active elbow flexion improved from 100 to 120 Passive elbow flexion improved from 110 to 130 Active elbow extension improved from -20 to -15 Passive elbow extension improved from -10 to -5 Forearm rotation is WNL Assessment OT Clinical Summary Patient referred to OT following right olecranon fracture s/p ORIF. She has done very well with her progress with elbow flexion and extension. Today her HEP was progressed with a 2 lb. free weight for supine elbow extension stretching and elbow flexion stretching. Reviewed all materials and she is independent with her HEP. Discharging today with HEP. Thank you for this referral. Plan of Care OT Services Indicated No
== END 2024-01-13 16:26 | disposition home or self-care (01) ==
LOC: ANHOT 11:00
PROVIDERS: PCP Nurse Practitioner Family; Visit Provider Physician Assistant Surgical
DX: S52.021A Displaced fracture of olecranon process without intraarticular extension of right ulna, initial encounter for closed fracture (principal)
CPT/HCPCS: 97110; 97140; 97165; 97530

== ENCOUNTER 2024-07-27 10:37 | Outpatient (CLI) | payer OTHER, SELFPAY ==
--- NOTE | ~2024-07-27 | MM_ITS ---
EXAMINATION: MM screening ana paula BI w jenny HISTORY: Screening TECHNIQUE: Craniocaudal and mediolateral oblique 3-D tomosynthesis images were obtained and synthetic 2-D images were generated. CAD analysis was submitted and interpreted. COMPARISON: Comparison to multiple prior studies sequentially, with oldest reviewed study dated 04/2016. BREAST PARENCHYMAL COMPOSITION: Not dense: There are scattered areas of fibroglandular density. FINDINGS: There is developing asymmetry in the lower inner quadrant of the left breast, posterior thi rd with possible architectural distortion. The right breast is stable without evidence for malignancy . IMPRESSION: 1. Developing asymmetries of the left breast, lower inner quadrant. 2. Additional mammographic views and possible breast ultrasound are recommended. BI-RADS Category 0: Incomplete: Needs additional imaging evaluation. Reviewed, dictated and finalized at location B. IMPRESSION: 1. Developing asymmetries of the left breast, lower inner quadrant. 2. Additional mammographic views and possible breast ultrasound are recommended . BI-RADS Category 0: Incomplete: Needs additional imaging evaluation.
== END 2024-07-27 10:38 | disposition home or self-care (01) ==
PROVIDERS: PCP Nurse Practitioner Family; Visit Provider Nurse Practitioner
DX: Z12.31 Encounter for screening mammogram for malignant neoplasm of breast (principal); R92.8 Other abnormal and inconclusive findings on diagnostic imaging of breast
CPT/HCPCS: 77063; 77067

== ENCOUNTER 2024-08-21 08:32 | Outpatient (CLI) | payer OTHER, SELFPAY ==
--- NOTE | ~2024-08-21 | MMUS_ITS ---
EXAMINATION: MM diagnostic ana paula LT w jenny, US breast LT complete HISTORY: Follow-up left breast asymmetries TECHNIQUE: Additional 3-D tomosynthesis images of the left breast were performed and synthetic 2-D im ages were generated. CAD analysis was submitted and interpreted. High resolution complete left breast ultrasound was performed. COMPARISON: Comparison to multiple prior studies sequentially, with oldest reviewed study dated 12/01. BREAST PARENCHYMAL COMPOSITION: Not dense: There are scattered areas of fibroglandular density. FINDINGS: MAMMOGRAPHIC FINDINGS: There are no suspicious masses, calcifications or architectural distortion with spot compression or m ediolateral views. Focal asymmetry is less apparent with spot compression views, consistent with supe rimposed fibroglandular content. ULTRASOUND: Complete US of all 4 quadrants of the left breast/s and retroareolar region was reviewed. Normal hete rogeneous echotexture without focal solid or cystic mass. IMPRESSION: 1. No evidence for malignancy in the left breast. 2. Routine yearly screening mammogram and regular clinical breast examination are recommended. BI-RADS Category 2: Benign finding(s). Reviewed, dictated and finalized at location A. IMPRESSION: 1. No evidence for malignancy in the left breast. 2. Routine yearly screening mammogram and regular clinical breast examination a re recommended. BI-RADS Category 2: Benign finding(s).
== END 2024-08-21 08:33 | disposition home or self-care (01) ==
LOC: MICIMG 08:32
PROVIDERS: PCP Nurse Practitioner Family; Visit Provider Obstetrics & Gynecology Gynecology
DX: R92.8 Other abnormal and inconclusive findings on diagnostic imaging of breast (principal)
CPT/HCPCS: 76641; 77061; 77065; G0279

== ENCOUNTER 2024-09-06 10:16 | Outpatient (CLI) | payer OTHER, SELFPAY ==
--- OUTSIDE RECORDS SUMMARY | 2024-09-06 10:24 | XMS_ITS | Clinical Summary ---
Author Organization [facility] Address [address] [place] [address] Care Team Providers Care Harnessmaker Name Role Phone Unavailable Primary Care Provider Unavailabl e Medications bimatoprost (Lumigan) 0.01 % solution Administer 1 Drop in both eyes daily at bedtime. 2.5 mL 6 04/07/2022 2:06 PM MESS ATTENDANT CREW 3 Active brimonidine (ALPHAGAN) 0.2 % solution Instill one drop into both eyes twice a day 15 mL 11 05/02/2022 11:35 AM MESS ATTENDANT CREW 3 Active dorzolamide (TRUSOPT) 2 % solution Instill one drop into both eyes two times a day. 10 mL 11 05/02/2022 11:35 AM MESS ATTENDANT CREW 3 Active bimatoprost (Lumigan) 0.01 % solution Instill one drop into both eyes at night 7.5 mL 11 05/02/2022 11:35 AM MESS ATTENDANT CREW 3 Active Social History Tobacco Use Types Packs/Day Years Used Date Smoking Tobacco: Never Assessed Comments Unknown Sex and Gender Information Value Date Recorded Sex Assigned at Not on file Legal Sex Female 10:58 AM MESS ATTENDANT CREW Gender Identity Not on file Sexual Orientation Not on file Plan of Treatment Health Maintenance Due Date Last Done Comments DTAP/TDAP/TD VACCINES (1 - Tdap) 1965 PNEUMOCOCCAL VACCINE 50+ YEARS (1 of 1 - PCV) 10/13/18 97 ZOSTER VACCINE (1 of 2) 1996 OSTEOPOROSIS SCREENING 10/14/2011 RSV VACCINE (60+ or ) (1 - 1-dose 75+ series) 2021 INFLUENZA VACCINE (#1) 2024 Insurance [employer]
== END 2024-09-06 10:17 | disposition home or self-care (01) ==
PROVIDERS: PCP Nurse Practitioner Family; Visit Provider Otolaryngology
DX: H90.3 Sensorineural hearing loss, bilateral (principal); H93.13 Tinnitus, bilateral; J32.9 Chronic sinusitis, unspecified; Z91.81 History of falling
CPT/HCPCS: 92557; 92567